=== PATIENT | female | born 1950 | race Hispanic/Latino ===

== ENCOUNTER 2017-10-20 15:17 | Inpatient (IN) | payer MEDICARE, OTHER ==
[2017-10-20 15:35] VITALS: BMI 20.2
[2017-10-20 16:16] LABS: BASO # 0.1 K/uL (0.0-0.2); BASO % 0.9 % (0.0-2.0); EOS # 0.1 K/uL (0.0-0.7); EOS % 0.8 % (0.0-4.0); HEMOGLOBIN 11.2 g/dL (11.0-16.0); LYMPH # 2.2 K/uL (1.0-4.3); MEAN CELL VOLUME 84.5 fL (81.0-99.0); MEAN CORPUSCULAR HEMOGLOBIN 29.3 pg (27.0-31.0); MEAN CORPUSCULAR HGB CONC 34.6 g/dL (33.0-37.0); MEAN PLATELET VOLUME 7.5 fL (7.2-11.7); MONO # 0.2 K/uL (0.0-0.8); MONO % 1.9 % (0.0-10.0); NEUT % 73.4 % (50.0-75.0); NRBC % 0.1 % (0.0-2.0); RBC 3.84 Mil/uL (3.80-5.20); RED CELL DISTRIBUTION WIDTH 12.9 % (11.5-14.5); WHITE BLOOD COUNT 9.6 K/uL (4.8-10.8)
[2017-10-20 16:28] LABS: ALB/GLOB RATIO 1.3 (1.0-2.1); ALBUMIN 4.5 g/dL (3.5-5.0); ALT/SGPT 23 U/L (9-52); AST/SGOT 12 U/L (14-36); BLOOD UREA NITROGEN 10 mg/dL (7-17); CALCIUM 9.1 mg/dl (8.6-10.4); GFR NON-AFRICAN AMERICAN > 60
[2017-10-20 16:36] LABS: SQUAMOUS EPITHIAL 1 /hpf (0-5); URINE BILIRUBIN NEGATIVE (NEGATIVE); URINE BLOOD NEGATIVE (NEGATIVE); URINE CLARITY Clear (Clear); URINE COLOR Yellow (YELLOW); URINE GLUCOSE (UA) NORMAL (Normal); URINE LEUKOCYTE ESTERASE NEG Leu/uL (Negative); URINE PROTEIN NEGATIVE (NEGATIVE); URINE UROBILINOGEN NORMAL mg/dL (0.2-1.0)
[2017-10-20 16:40] LABS: BARBITURATES, UR NEGATIVE (NEGATIVE); PHENCYCLIDINE, UR NEGATIVE (NEGATIVE)
[2017-10-20 17:04] LABS: BENZODIAZEPINES, UR POSITIVE (NEGATIVE); OPIATES, UR POSITIVE (NEGATIVE)
--- NOTE | 2017-10-20 17:21 | C.PDOC ---
History Of Present Illness 67 year old female presents to the emergency department for detox. 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 She denies any new current symptoms. Time Seen by Provider: 10/20/17 15:49 Chief Complaint (Nursing): Substance Abuse History Per: Patient History/Exam Limitations: no limitations Past Medical History Reviewed: Historical Data, Nursing Documentation, Vital Signs Vital Signs: Last Vital Signs Temp 98.9 F 10/20/17 15:41 Pulse 109 H 10/20/17 15:41 Resp 22 10/20/17 15:41 BP 139/78 10/20/17 15:41 Pulse Ox 94 L 10/20/17 17:40 - Medical History PMH: Arthritis, Back Problems, COPD Family History: States: No Known Family Hx - Social History Hx Alcohol Use: No Hx Substance Use: No - Immunization History Hx Tetanus Toxoid Vaccination: No Hx Influenza Vaccination: Yes Hx Pneumococcal Vaccination: Yes Review Of Systems Except As Marked, All Systems Reviewed And Found Negative. Physical Exam - Physical Exam Appears: Non-toxic, No Acute Distress Skin: Normal Color, Warm, Dry Head: Atraumatic, Normacephalic Eye(s): bilateral: Normal Inspection, PERRL, EOMI Nose: Normal Oral Mucosa: Moist Neck: Supple Chest: Symmetrical Cardiovascular: Rhythm Regular, No Murmur Respiratory: Normal Breath Sounds, No Rales, No Rhonchi, No Wheezing Gastrointestinal/Abdominal: Normal Exam, Soft, No Tenderness Extremity: Bilateral: Atraumatic, Normal Color And Temperature, Normal ROM Neurological/Psych: Oriented x3, Normal Speech ED Course And Treatment - Laboratory Results Result Diagrams: 10/20/17 16:09 10/20/17 16:09 O2 Sat by Pulse Oximetry: 94 (RA) Pulse Ox Interpretation: Normal Medical Decision Making Medical Decision Making: Impression: Opiods abuse Plan: -Labs -Urinalysis 5:28pm - Patient is medically cleared for crisis Disposition Discussed With DrParul: Etienne Stuart Doctor Will See Patient In The: Hospital Counseled Patient/Family Regarding: Studies Performed, Diagnosis - Disposition Disposition: HOSPITALIZED Disposition Time: 17:43 Condition: FAIR Forms: [facility] (Irish) - Clinical Impression Clinical Impression: Drug abuse - Scribe Statement The provider has reviewed the documentation as recorded by the Nitin Skelton Provider Attestation: All medical record entries made by the Olgaibmaritza were at my direction and personally dictated by me. I have reviewed the chart and agree that the record accurately reflects my personal performance of the history, physical exam, medical decision making, and the department course for this patient. I have also personally directed, reviewed, and agree with the discharge instructions and disposition.
--- NOTE | 2017-10-20 18:10 | PCM.BM ---
<AmyLamontRoma - Last Filed: 10/20/17 18:08> Treatment Plan Problems - Problems identified on initial assessmt Potential for opiate withdrawal Date Initiated: 10/20/17 Time Initiated: 18:09 Assessment reference: NA Status: Active Treatment assets and liabiliti Patient Assests: negotiates basic needs, cognitively intact Patient Liabilities: substance abuse (THC,Opiates), medical problems (COPD, arthritis, back problems) - Milieu Protocol Maintain good personal hygiene: daily Encourage regular showers, daily Remind patient to perform daily oral care, daily Assist patient to perform ADL's Conduct patient checks and document Observation sheet: Q15 minutes Maintain personal safety: every shift Educate patient to report safety concerns to staff, every shift Monitor environment for contraband/sharps Medication safety: Monitor for expected outcome, potential side effects: every shift, Assess barriers to learning: every shift, Assess readiness for medication education: every shift <Andrea Nielsen - Last Filed: 10/21/17 15:01> - Diagnosis (1) Opioid use disorder, severe, dependence Status: Acute Interventions: 10/21/17 15:00 * Assess 7x/week regarding severity of withdrawal * Educate regarding risks, benefits, side effects and alternatives of medications * Use Motivational Interviewing for abstinence * Use CBT for relapse prevention * Medication management for withdrawal symptoms * Encourage medication assisted treatment *
[2017-10-20] MEDS ORDERED: Albuterol HFA 90 mcg/actuation (8 g) INH PRN (18:27)
[2017-10-20] MEDS: Budesonide 0.5 mg/2 ml Inhal Susp UD INH SCH (21:09)
[2017-10-20] MEDS: Mometasone 220 mcg/puff-14 puff Inh INH SCH (21:51)
[2017-10-21] MEDS: Budesonide 0.5 mg/2 ml Inhal Susp UD INH SCH ×2 (08:40→20:39)
[2017-10-21] MEDS ORDERED: Buprenorphine Hydrochloride 2 mg SL ONE ×3 (09:15→11:45)
[2017-10-21] MEDS ORDERED: Albuterol HFA 90 mcg/actuation (8 g) INH PRN (10:36)
[2017-10-21] MEDS: Tiotropium 18 mcg Cap For Inhalation IH SCH (11:46)
[2017-10-21] MEDS: Bisacodyl 5mg EC Tab PO SCH (11:57)
--- NOTE | 2017-10-21 14:20 | PCM.PSYCH ---
Initial Psychiatric Evaluation - Initial Psychiatric Evaluation Type of Admission: Voluntary Legal Status: Capacity Chief Complaint (in patient's own words): "I need detox from opiates" History of Present Illness and Precipitating Events: Pt is seen, chart reviewed, case discussed with staff. Pt is a 67 y/o female who presented to the ED yesterday evening for opiate detox; pt lives in a house in [place] with her , 2 sons, and grandchildren; pt has been on work disability since 21 y/o for dermatomyositis. Pt has been controlled on various pain medications for her dermatomyositis since the dx was made in her early 20s; pt was taking Oxy, fentanyl patches, Percocet, and diazepam before coming to the ED. 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 Pt denies alcohol, cigarette, or other illicit drug use. She has significant withdrawal sxs, subutex started. Past med hx positive for COPD; pt is oxygen dependent on 4L. Past psych hx is positive for severe anxiety disorder, no admissions, no suicidality Family psyc hx denied. Current Medications: Active Medications Generic Name Dose Route Start Last Admin Trade Name Freq PRN Reason Stop Dose Admin Acetaminophen 650 mg 10/20/17 19:08 10/20/17 19:31 Tylenol 325mg Tab PO 650 mg Q8 PRN Administration Pain, moderate (4-7) Albuterol 1 puff 10/21/17 10:36 Ventolin Hfa 90 Mcg/Actuation (8 G) INH RQ6 PRN Wheezing Albuterol/Ipratropium 3 ml 10/20/17 19:09 Duoneb 3 Mg/0.5 Mg (3 Ml) Ud INH RQ6 PRN Shortness of Breath Bisacodyl 5 mg 10/21/17 10:30 10/21/17 11:57 Dulcolax PO Not Given DAILY NAILA Budesonide 0.5 mg 10/20/17 20:00 10/21/17 08:40 Pulmicort Respules INH 0.5 mg RQ12 NAILA Administration Chlordiazepoxide 25 mg 10/20/17 19:07 10/20/17 19:31 Librium PO 25 mg Q6 PRN Administration benzo withdrawal Diazepam 5 mg 10/21/17 14:00 10/21/17 14:13 Valium PO 5 mg TID NAILA Administration Hydroxyzine HCl 25 mg 10/20/17 19:08 10/20/17 19:31 Atarax PO 25 mg Q6 PRN Administration Anxiety Mometasone Furoate 1 puff 10/20/17 22:00 10/20/17 21:51 Asmanex Twisthaler 220 Mcg INH 1 inhaler HS NAILA Administration Tiotropium Rudolph 18 mcg 10/21/17 08:00 10/21/17 11:46 Spiriva IH Not Given RQD NAILA Trazodone HCl 50 mg 10/21/17 00:55 10/21/17 01:11 Desyrel PO 50 mg HS PRN Administration insomnia Past Psychiatric History - Past Psychiatric History Previous Treatment History: None Pertinent Medical Hx (Current Medical&Sleep Prob, Allergies): Allergies Allergy/AdvReac Type Severity Reaction Status Date / Time No Known Allergies Allergy Verified 10/20/17 15:35 Acetaminophen/Oxycodone Hydr [Percocet 10/325 mg Tab] 1 tab PO Q6H 10/20/17 Albuterol Sulfate [Ventolin Hfa] 1 puff IH TID 10/20/17 Bisacodyl [Dulcolax] 5 mg PO DAILY 10/20/17 Budesonide [Pulmicort Respules] 0.5 mg IH BID 10/20/17 Fluticasone Propionate [Flovent Hfa] 0.11 mg IH TID 10/20/17 Formoterol Fumarate [Perforomist] 20 mcg IH BID 10/20/17 Ipratropium Rudolph 5 gm MC QID 10/20/17 Morphine Sulfate [Yaneth] 500 mg PO DAILY 10/20/17 Omeprazole 40 mg PO DAILY 10/20/17 Oxycodone HCl [Oxycontin] 80 mg PO TID 10/20/17 Tiotropium [Spiriva] 18 mcg IH DAILY 10/20/17 diaZEpam [Valium] 5 mg PO Q6H 10/20/17 fentaNYL 12 mcg/hr [Duragesic Patch 12 mcg/hr] 2 patch TD Q72H 10/20/17 Review of Systems - Neurological Neurological: Tremor - Psychiatric Psychiatric: Abnormal Sleep Pattern, Anxiety. absent: Auditory Hallucinations, Confusion, Hallucinations, Homicidal Ideation, Panic Attacks, Paranoia, Suicidal Ideation, Visual Hallucinations, Tactile Hallucinations Mental Status Examination - Personal Presentation Personal Presentation: Looks stated age - Affect Affect: Broad - Motor Activity Motor Activity: Calm - Reliability in Providing Information Reliability in Providing Information: Good - Speech Speech: Organized - Mood Mood: Anxious - Formal Thought Process Formal Thought Process: No Impairment - Obsessions/Compulsions Obsessions: No Compulsions: No - Cognitive Functions Orientation: Person, Place, Situation, Time Sensorium: Alert Attention/Concentration: Attentive Abstract Thinking: [place] Judgement: Intact, as evidence by: Good judgement, Intact, as evidence by: Insight regarding need for hospitalization Memory: Recent intact, as evidence by: Ability to recall events of the day, Remote intact, as evidenced by: Abilit to recall sig. 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 Attend groups and activities Supportive therapy and psychoeducation [place] for abstinence CBT for relapse prevention Encourage MAT Medical meds continued Consult if needed Respiratory will be made aware 35 min Projected ELOS: 4-5 days Prognosis: good w treatment
--- NOTE | 2017-10-21 17:16 | RAD ---
Date of service: 10/21/2017 HISTORY: Severe COPD, has cough now COMPARISON: No prior. FINDINGS: LUNGS: Hyperinflation consistent with background COPD. Lateral right basal discoid atelectasis/ trace fibrosis Judy postsurgical changes could also simulate this. Surgical changes project over the central heart paravertebral region on this single frontal view PLEURA: No significant pleural effusion identified, no pneumothorax apparent. CARDIOVASCULAR: Mild cardiomegaly. Calcified tortuous thoracic aorta. OSSEOUS STRUCTURES: No significant abnormalities. VISUALIZED UPPER ABDOMEN: Normal. OTHER FINDINGS: None. IMPRESSION: No consolidative infiltrates seen. COPD with probable interstitial lung disease changes both lung bases. No consolidation here seen. Discoid atelectasis/ scarring and/or surgical changes lateral right lung base -here correlate clinically. No comparison studies or lateral views available.
[2017-10-21] MEDS ORDERED: Budesonide 0.5 mg/2 ml Inhal Susp UD IH SCH (18:00)
[2017-10-21] MEDS: Mometasone 220 mcg/puff-14 puff Inh INH SCH (21:00)
[2017-10-22] MEDS: Albuterol-Ipratrop 3 mg / 0.5 (3 ml) UD INH PRN (05:20)
[2017-10-22] MEDS: Budesonide 0.5 mg/2 ml Inhal Susp UD INH SCH ×2 (09:19→20:36)
[2017-10-22] MEDS: Tiotropium 18 mcg Cap For Inhalation IH SCH (09:19)
[2017-10-22 09:28] LABS: BASO % 0.4 % (0.0-2.0); HEMOGLOBIN 12.5 g/dL (11.0-16.0); LYMPH # 0.9 K/uL (1.0-4.3); LYMPH % 9.8 % (20.0-40.0); MEAN CELL VOLUME 83.9 fL (81.0-99.0); MEAN CORPUSCULAR HEMOGLOBIN 29.1 pg (27.0-31.0); MEAN CORPUSCULAR HGB CONC 34.7 g/dL (33.0-37.0); MEAN PLATELET VOLUME 7.9 fL (7.2-11.7); MONO # 0.2 K/uL (0.0-0.8); NEUT # 8.3 K/uL (1.8-7.0); NEUT % 87.8 % (50.0-75.0); PLATELET COUNT 403 K/uL (130-400); RBC 4.32 Mil/uL (3.80-5.20); RED CELL DISTRIBUTION WIDTH 12.9 % (11.5-14.5); WHITE BLOOD COUNT 9.5 K/uL (4.8-10.8)
[2017-10-22] MEDS: Bisacodyl 5mg EC Tab PO SCH (09:39)
[2017-10-22] MEDS: Buprenorphine Hydrochloride 2 mg SL SCH (09:41)
[2017-10-22 10:07] LABS: ALB/GLOB RATIO 1.2 (1.0-2.1); ALBUMIN 4.9 g/dL (3.5-5.0); ALT/SGPT 21 U/L (9-52); AST/SGOT 19 U/L (14-36); BLOOD UREA NITROGEN 16 mg/dL (7-17); CALCIUM 10.1 mg/dl (8.6-10.4); GFR NON-AFRICAN AMERICAN > 60
[2017-10-22 10:30] LABS: BANDS 3 % (0-2); LYMPHOCYTE 9 % (20-40); MONOCYTE 2 % (0-10); NEUTROPHIL 86 % (50-75); PLATELET ESTIMATE SLIGHTLY INCREASED (NORMAL); TOTAL CELLS COUNTED 100
[2017-10-22 10:31] LABS: STOMATOCYTES SLIGHT
--- NOTE | 2017-10-22 14:15 | PCM.PYCHPN ---
Psychiatric Progress Note - Psychiatric Progress Note Patient seen today, length of contact: 15 minutes Patient Chief Complaint: "I am having withdrawals. " Problems Identified/Issues Discussed: Pt is seen, chart reviewed, case discussed with staff. Pt is compliant with medications and reports no side-effects. Symptoms are improving but needs more time to stabilize. Pt did not sleep well; pt woke up in the middle of the night with an episode of n/v. Xray is consistent with COPD with no other abnormalities. After care discussed. Medication Change: Yes Medical Record Reviewed: Yes Mental Status Examination - Cognitive Function Orientation: Person, Place, Situation, Time Memory: Intact Attention: WNL Concentration: WNL Association: WNL Fund of Knowledge: WNL - Mood Mood: Anxious - Affect Affect: Broad - Speech Speech: Appropriate - Formal Thought Process Formal Thought Process: No Impairment - Suicidal Ideation Suicidal Ideation: No - Homicidal Ideation Homicidal Ideation: No Goal/Treatment Plan - Goal/Treatment Plan Need for Continued Stay: Discharge may exacerbated symptoms, Failed transitioning Progress Toward Problem(s) and Goals/Treatment Plan: Continue medications; add Protonix. Support and psychoeducation daily Attend groups and activities daily After care planning by STEVEN 15 min
[2017-10-22] MEDS ORDERED: Pantoprazole 40 mg EC Tab PO STA (17:09)
[2017-10-22] MEDS: Mometasone 220 mcg/puff-14 puff Inh INH SCH (21:06)
[2017-10-23] MEDS: Budesonide 0.5 mg/2 ml Inhal Susp UD INH SCH ×2 (09:05→19:12)
[2017-10-23] MEDS: Albuterol-Ipratrop 3 mg / 0.5 (3 ml) UD INH PRN ×2 (09:06→16:16)
[2017-10-23] MEDS: Tiotropium 18 mcg Cap For Inhalation IH SCH (09:06)
[2017-10-23] MEDS: Bisacodyl 5mg EC Tab PO SCH (09:49)
[2017-10-23] MEDS: Pantoprazole 40 mg EC Tab PO SCH (09:49)
[2017-10-23] MEDS: Buprenorphine Hydrochloride 2 mg SL SCH (10:43)
[2017-10-23] MEDS: Mometasone 220 mcg/puff-14 puff Inh INH SCH (21:27)
[2017-10-24 06:16] VITALS: RESP 18
[2017-10-24 08:25] VITALS: BP 143/89; PULSE 89; TEMP 97.6; O2SAT 98
[2017-10-24] MEDS: Tiotropium 18 mcg Cap For Inhalation IH SCH (08:32)
[2017-10-24] MEDS: Budesonide 0.5 mg/2 ml Inhal Susp UD INH SCH (08:38)
[2017-10-24] MEDS: Bisacodyl 5mg EC Tab PO SCH (09:49)
[2017-10-24] MEDS: Buprenorphine Hydrochloride 2 mg SL SCH (09:51)
[2017-10-24] MEDS: Pantoprazole 40 mg EC Tab PO SCH (09:51)
--- NOTE | 2017-10-25 17:05 | PCM.PYCHPN ---
Psychiatric Progress Note - Psychiatric Progress Note Patient seen today, length of contact: 15 minutes Patient Chief Complaint: "I am having withdrawals. " Problems Identified/Issues Discussed: Pt is seen, chart reviewed, case discussed with staff. Pt is compliant with medications and reports no side-effects. Still throwing up daily Meds given with good result She still wants to leave tomorrow despite ongoing sxs Bed-bound due to fatigue and wdw, and dependent on oxygene 4 lt/hr Support and psychoed given She feels "improving" Medication Change: Yes (detox changes daily) Medical Record Reviewed: Yes Mental Status Examination - Cognitive Function Orientation: Person, Place, Situation, Time Memory: Intact Attention: WNL Concentration: WNL Association: WNL Fund of Knowledge: WNL - Mood Mood: Anxious - Affect Affect: Broad - Speech Speech: Appropriate - Formal Thought Process Formal Thought Process: No Impairment - Suicidal Ideation Suicidal Ideation: No - Homicidal Ideation Homicidal Ideation: No Goal/Treatment Plan - Goal/Treatment Plan Need for Continued Stay: Discharge may exacerbated symptoms, Failed transitioning Progress Toward Problem(s) and Goals/Treatment Plan: Continue medications; add Protonix. Support and psychoeducation daily Attend groups and activities daily After care planning by STEVEN
--- NOTE | 2017-10-25 17:05 | PCM.PYCHDC ---
Mental Status Examination - Mental Status Examination Orientation: Person Discharge Summary - Discharge Note Consultations:: List each consultation separately and include: 1. Reason for request. 2. Findings. 3. Follow-up Summary of Hospital Course include:: 1. Description of specific treatment plan utilized for patients during their course of treatmen. 2. Summarize the time- course for resolution of acute symptoms and/or regressed behaviors. 3. Describe issues identified and worked on during hospitalization. 4. Describe medication utilized. 5. Describe medical problems identified and treated. 6. Reassessment of suicide risk Summary of Hospital Course: Pt is seen, chart reviewed, case discussed with staff. Pt is a 67 y/o female who presented to the ED yesterday evening for opiate detox; pt lives in a house in [place] with her , 2 sons, and grandchildren; pt has been on work disability since 21 y/o for dermatomyositis. Pt has been controlled on various pain medications for her dermatomyositis since the dx was made in her early 20s; pt was taking Oxy, fentanyl patches, Percocet, and diazepam before coming to the ED. 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 Pt denies alcohol, cigarette, or other illicit drug use. She has significant withdrawal sxs, subutex started. Past med hx positive for COPD; pt is oxygen dependent on 4L. Past psych hx is positive for severe anxiety disorder, no admissions, no suicidality Family psyc hx denied. - Diagnosis (1) Opioid use disorder, severe, dependence Status: Acute - Final Diagnosis (DSM 5) Condition upon Discharge: FAIR Disposition: HOME/ ROUTINE Follow-up Treatment Plan: Continue medications; add Protonix. Support and psychoeducation daily Attend groups and activities daily After care planning by STEVEN 15 min Prescriptions/Medication Reconciliation: Albuterol HFA [Ventolin HFA 90 mcg/actuation (8 g)] 1 puff INH RQ6 PRN #30 inhaler PRN Reason: Wheezing Bisacodyl [Dulcolax] 5 mg PO DAILY #30 tablet. Budesonide [Pulmicort Respules] 0.5 mg INH RQ12 #1 neb Mometasone [Asmanex Twisthaler 220 MCG] 1 puff INH HS #30 inh Ondansetron ODT [Zofran ODT] 4 mg PO BID PRN #20 odt PRN Reason: Nausea/Vomiting Tiotropium [place] Inhaler [Spiriva Inhalation Handihaler Device] 1 inhaler INH ONCE #1 inhaler traZODone [Desyrel] 100 mg PO HS #30 tab
== END 2017-10-24 10:49 | disposition home or self-care (01) | DRG 895 ==
LOC: C.ER 15:17 → C.7D 17:42
PROC: HZ2ZZZZ Detoxification Services for Substance Abuse Treatment (ICD-10-PCS; principal; 2017-10-20)
PROC: HZ52ZZZ Individual Psychotherapy for Substance Abuse Treatment, Cognitive-Behavioral (ICD-10-PCS; 2017-10-20)
PROC: HZ59ZZZ Individual Psychotherapy for Substance Abuse Treatment, Supportive (ICD-10-PCS; 2017-10-20)
PROC: HZ56ZZZ Individual Psychotherapy for Substance Abuse Treatment, Psychoeducation (ICD-10-PCS; 2017-10-20)
PROC: GZHZZZZ Group Psychotherapy (ICD-10-PCS; 2017-10-20)
PROC: GZ58ZZZ Individual Psychotherapy, Cognitive-Behavioral (ICD-10-PCS; 2017-10-20)
PROC: GZ56ZZZ Individual Psychotherapy, Supportive (ICD-10-PCS; 2017-10-20)
DX: F11.23 Opioid dependence with withdrawal (principal); M33.13 Other dermatomyositis without myopathy; F13.29 Sedative, hypnotic or anxiolytic dependence with unspecified sedative, hypnotic or anxiolytic-induced disorder; F12.90 Cannabis use, unspecified, uncomplicated; J44.9 Chronic obstructive pulmonary disease, unspecified; Z74.01 Bed confinement status; Z99.81 Dependence on supplemental oxygen; F41.1 Generalized anxiety disorder